=== PATIENT | male | born 1965 | race Caucasian/White ===

== ENCOUNTER → 2017-06-29 | Outpatient (CLI) | payer OTHER, BC ==
--- NOTE | 2017-06-29 22:33 | MR ---
EXAMINATION TYPE: MR knee RT wo con DATE OF EXAM: 06/29/2017 COMPARISON: NONE HISTORY: Rt knee pain TECHNIQUE: Multiplanar, multisequence imaging of the right knee is performed without IV contrast. FINDINGS: MEDIAL MENISCUS: There is increased signal within the posterior horn of the medial meniscus compatibl e some internal derangement or degenerative change. No communication with the articular surface is ev ident. Anterior horn of the medial meniscus is unremarkable. LATERAL MENISCUS: Anterior and posterior horns are intact without tear. CRUCIATE LIGAMENTS: The anterior and posterior cruciate ligaments are intact and unremarkable. COLLATERAL LIGAMENTS: The medial collateral ligament and lateral collateral ligament complex are inta ct and unremarkable. EXTENSOR MECHANISM: Very subtle increased signal may be near the insertion of the patellar tendon on the tibia. Series 201 image 19, series 301 image 20. Correlate with location of the patient's pain. EFFUSION: Moderate joint effusion is present. POPLITEAL CYST: No popliteal/concepcion cyst. TRICOMPARTMENT SPACES: Preserved. CARTILAGE: Mild diffuse thinning of the articular cartilage is present within the medial compartment and to a lesser degree the lateral compartment. Anterior patellar articular cartilage appears intact. There is thinning of the posterior patellar cartilage. BONE MARROW SIGNAL: No focal abnormal marrow signal is appreciated. OTHER: There may be some mild superficial soft tissue edema present. IMPRESSION: 1. Internal derangement or degenerative change posterior horn medial meniscus. 2. Mild osteoarthritic degenerative change greater in the medial compartment 3. Moderate joint effusion
== END ==
LOC: RADMRIMAIN 21:01
PROVIDERS: ATTEND Orthopaedic Surgery
DX: M23.321 Other meniscus derangements, posterior horn of medial meniscus, right knee (principal); M17.11 Unilateral primary osteoarthritis, right knee

== ENCOUNTER → 2017-07-15 | Outpatient (CLI) | payer OTHER, BC ==
--- NOTE | 2017-07-15 11:24 | MR ---
EXAMINATION TYPE: MR shoulder RT wo con DATE OF EXAM: 07/15/2017 7:41 AM COMPARISON: NONE HISTORY: pain in rt shoulder TECHNIQUE: Multiplanar multispin echo imaging of the right shoulder was performed. FINDINGS: Rotator cuff : There is thickening and heterogeneity of the supraspinatus tendon with intrasubstance microtears noted. No evidence for full-thickness tear at this time. There is increased signal noted w ithin the subscapularis tendon as well as adjacent fluid. I suspect partial tear of this structure. Bursa: No bursal effusion or thickening is seen. Musculature: There is no muscular tear, contusion, or atrophy. Acromioclavicular joint : Subacromial spur resulting in impingement. AC joint arthropathy. Osseous structures : There are no fractures or regions of abnormal bone marrow signal intensity. Long biceps tendon : The biceps tendon is normally situated within the bicipital groove. Fluid is see n within the biceps tendon sheath which may reflect tenosynovitis. Thinning and heterogeneity of the intra-articular biceps tendon partial tear is not excluded. Glenohumeral Joint fluid : There is no glenohumeral joint effusion. Cartilage and Bone : No focal hyaline cartilage defects are noted. No Hill-Sachs, reverse Hill-Sachs, or bony Bankart lesions are seen. Labrum : There are no SLAP or soft tissue Bankart lesions. No paralabral cysts are seen. OTHER FINDINGS : none IMPRESSION: 1. There is increased signal noted within the subscapularis tendon as well as adjacent fluid. I suspe ct partial tear of this structure. 2. Tendinosis of the supraspinatus tendon with the microtear is noted. No evidence for full-thickness tear. 3. Subacromial spurring resulting in impingement. 4. Intra-articular thinning and tendinosis of the biceps tendon with partial tear difficult to exclud e.
== END | disposition home or self-care (01) ==
LOC: RADMRIMAIN 07:00
PROVIDERS: ATTEND Orthopaedic Surgery
DX: M75.101 Unspecified rotator cuff tear or rupture of right shoulder, not specified as traumatic (principal); M67.813 Other specified disorders of tendon, right shoulder

== ENCOUNTER → 2018-08-26 | Outpatient (CLI) | payer OTHER, BC ==
--- NOTE | 2018-08-27 00:02 | MR ---
EXAMINATION TYPE: MR knee RT wo con DATE OF EXAM: 08/26/2018 COMPARISON: 06/29/2017 HISTORY: Pain in right knee TECHNIQUE: Multiplanar, multisequence imaging of the right knee is performed without IV contrast. FINDINGS: There is moderate size knee joint effusion. The anterior and posterior cruciate ligaments appear inta ct. There is horizontal increased signal in the posterior horn medial meniscus extending to the super ior surface. There is also increased signal within the substance anterior horn medial meniscus. There is vertical defect through the posterior horn lateral meniscus extending to the superior and in ferior surface. There is some patchy increased signal in the T2 images involving the medial tibial co ndyle. This measures 3 x 1.5 cm. There is no evidence of a fracture. The collateral ligaments appear intact. There is a large cartilage defect of the articular cartilage of the medial femoral and tibial condyles. IMPRESSION: Moderate size knee joint effusion. Horizontal tear posterior horn of the medial meniscus that has pro gressed compared to old exam. There is vertical tear posterior horn of the lateral meniscus unchanged . There is new large cartilaginous defect of the articular cartilage of the medial femoral condyle comp ared to old exam. There is also defect of the articular cartilage medial tibial condyle. There is a n ew large bone bruise medial tibial condyle.
== END ==
LOC: RADMRIMAIN 05:55
PROVIDERS: ATTEND Orthopaedic Surgery
DX: S83.241A Other tear of medial meniscus, current injury, right knee, initial encounter (principal); S83.262A Peripheral tear of lateral meniscus, current injury, left knee, initial encounter; M94.9 Disorder of cartilage, unspecified

== ENCOUNTER → 2019-08-03 | Outpatient (CLI) | payer OTHER, BC ==
--- NOTE | 2019-08-03 12:34 | MR ---
EXAMINATION TYPE: MR shoulder LT wo con DATE OF EXAM: 08/03/2019 COMPARISON: NONE HISTORY: Left shoulder pain and unspecified injury of rotator cuff tendon TECHNIQUE: Multiplanar, multisequence imaging of the left shoulder is performed without contrast. FINDINGS: Rotator Cuff: Some increased signal distal supraspinatus and infraspinatus tendons without tear. Subs capularis tendon shows marked thickening and increased signal proximally with marked surrounding flui d . Distal fibers are less well seen. Rotator cuff muscle bulk is fairly well preserved. Acromioclavicular Joint: Moderate spurring and narrowing. Moderate capsular hypertrophy. Underlying F at plane maintained. Distal acromion morphology unremarkable. Glenohumeral Joint: Small joint effusion. Moderate narrowing. Mild spurring. Labrum: The labrum appears grossly intact given limitation of non-arthrogram study. Biceps Tendon: The long head of biceps is in normal location within bicipital groove. Bone marrow signal: No focal abnormal marrow signal is appreciated. Other: No additional significant abnormality is appreciated. IMPRESSION: 1. Marked tendinopathy of the subscapularis tendon. Significant surrounding edematous changes are pre sent. Cannot rule out distal tear but biceps tendon is not dislocated. Correlate clinically. 2. More mild tendinosis of the distal supraspinatus and infraspinatus tendons. No rotator cuff tear i s evident. 3. Moderate glenohumeral and AC joint arthropathy.
== END | disposition home or self-care (01) ==
LOC: RADMRIMAIN 05:59
PROVIDERS: ATTEND Physician Assistant
DX: M12.812 Other specific arthropathies, not elsewhere classified, left shoulder (principal)

== ENCOUNTER → 2020-07-30 | Outpatient (CLI) | payer OTHER, BC ==
--- NOTE | 2020-07-30 15:04 | MR ---
EXAMINATION TYPE: MR lumbar spine wo con DATE OF EXAM: 07/30/2020 COMPARISON: None HISTORY: L hip pain CONTRAST: 0 mL intravenous Gadavist. TECHNIQUE: Multiplanar, multisequence images of the lumbar spine were acquired. FINDINGS: L5-S1: No significant disc bulge or disc herniation. No spinal canal stenosis. No foraminal stenosi s. Mild facet hypertrophy is present.. L4-L5: There is a grade 1 spondylolisthesis of L4 anteriorly on L5. Broad-based disc bulge is present diffusely. Mild facet hypertrophy is present. There is mild right foraminal narrowing from disc bulg ing. No spinal canal stenosis. No foraminal stenosis. . L3-L4: There is broad-based disc bulge. This is greater in the right paracentral region. No spinal ca nal stenosis is present. Neural foramen are patent. Mild facet hypertrophy is present. L2-L3: No significant disc bulge or disc herniation. No spinal canal stenosis. No foraminal stenosi s. Minimal facet hypertrophy is present. L1-L2: No significant disc bulge or disc herniation. No spinal canal stenosis. No foraminal stenosi s. . T12-L1: No significant disc bulge or disc herniation. No spinal canal stenosis. No foraminal stenos is. . IMPRESSION: 1. Grade 1 spondylolisthesis of L4 anteriorly on L5. 2. Disc bulging at 34, L4-5. L4-5 this is causing mild anterior thecal sac flattening. At L3-4 this i s slightly greater in the right paracentral region but without stenosis.
== END | disposition home or self-care (01) ==
LOC: RADMRIMAIN 06:12
PROVIDERS: ATTEND Orthopaedic Surgery
DX: M51.26 Other intervertebral disc displacement, lumbar region (principal); M43.16 Spondylolisthesis, lumbar region; M16.12 Unilateral primary osteoarthritis, left hip; M70.62 Trochanteric bursitis, left hip
CPT/HCPCS: 72148

== ENCOUNTER → 2020-09-01 | Outpatient (CLI) | payer OTHER, BC ==
--- NOTE | 2020-09-01 16:50 | MR ---
EXAMINATION TYPE: MR hip LT wo con DATE OF EXAM: 09/01/2020 COMPARISON: None HISTORY: Lt hip pain x 3 mos, limited ROM Multiplanar multiecho imaging of the pelvis and both hips was performed without contrast. FINDINGS: On the T1 images there is abnormal decreased signal in the superior aspect of the left femoral head. This area shows slight increased signal on the STIR images. There is no free fluid in the pelvis. Blake dder distends smoothly. There is no sign of a pelvic mass. The sacroiliac joints appear intact. Proxi mal right femur has normal signal pattern. IMPRESSION: 2.5 cm area of abnormal signal in the superior left femoral head consistent with avascular necrosis. No significant collapse of the articular surface. There is slight narrowing left hip joint space.
== END | disposition home or self-care (01) ==
LOC: RADMRIMAIN 07:17
PROVIDERS: ATTEND Orthopaedic Surgery Orthopaedic Surgery of the Spine
DX: M54.5 Low back pain (principal)

== ENCOUNTER → 2020-09-24 | Outpatient (CLI) | payer OTHER, BC ==
[2020-09-24 11:47] LABS: HCT 45.9 % (39.0-53.0); HGB 15.8 gm/dL (13.0-17.5); MCH 32.9 pg (25.0-35.0); MCHC 34.4 g/dL (31.0-37.0); MCV 95.4 fL (80.0-100.0); Mean Platelet Volume 7.2; Platelet Count 249 k/uL (150-450); RBC 4.81 m/uL (4.30-5.90); RDW 12.4 % (11.5-15.5); WBC 8.6 k/uL (3.8-10.6)
[2020-09-24 11:52] LABS: Appearance,Urine Clear (Clear); Bilirubin,Urine Negative (Negative); Blood,Urine Negative (Negative); Color,Urine Yellow; Glucose,Urine (UA) Negative (Negative); Ketones,Urine Negative (Negative); Leukocyte Esterase,Urine Negative (Negative); Nitrite,Urine Negative (Negative); Protein,Urine Trace (Negative); Specific Gravity,Urine 1.031 (1.001-1.035); Urobilinogen,Urine <2.0 mg/dL (<2.0)
[2020-09-24 12:02] LABS: INR 0.9 (<1.2); Partial Thromboplastin Time 24.6 sec (22.0-30.0); Prothrombin Time 9.8 sec (9.0-12.0)
[2020-09-24 12:03] LABS: ALT 19 U/L (4-49); AST 23 U/L (17-59); African American GFR (CKD) >90 (>60 ml/min/1.73 sqM); Albumin 4.6 g/dL (3.5-5.0); Alkaline Phosphatase 74 U/L (38-126); Anion Gap 8 mmol/L; Blood Urea Nitrogen 18 mg/dL (9-20); Calcium 9.4 mg/dL (8.4-10.2); Carbon Dioxide 27 mmol/L (22-30); Chloride 106 mmol/L (98-107); Glucose 94 mg/dL (74-99); Non-African American GFR(CKD) >90 (>60 ml/min/1.73 sqM); Potassium 4.5 mmol/L (3.5-5.1); Sodium 141 mmol/L (137-145); Total Protein 7.6 g/dL (6.3-8.2)
== END | disposition home or self-care (01) ==
LOC: LABPAT 09:35
PROVIDERS: ATTEND Orthopaedic Surgery
DX: Z01.812 Encounter for preprocedural laboratory examination (principal); Z01.818 Encounter for other preprocedural examination
CPT/HCPCS: 36415; 80053; 81003; 85027; 85610; 85730; 87070

== ENCOUNTER 2020-10-02 09:52 | Observation (INO) | payer OTHER, BC ==
[2020-10-01 09:00] VITALS: BMI 31.8
[~2020-10-02 09:52] MED LIST: ACETAMINOPHEN TAB 500 MG TAB PO ONE; DEXAMETHASONE SOD PHOSPHATE 4 MG/ML 1 ML VIAL IV ONE; GABAPENTIN 300 MG CAP PO ONE; LIDOCAINE 1% (10MG/ML) FOR IV START INTRADERMA PRN; MELOXICAM 7.5 MG TAB PO ONE; MIDAZOLAM 2 MG/2 ML VIAL IV PRN; ONDANSETRON 4 MG/2 ML VIAL IVP ONE; ROPIVACAINE 246.25 MG, EPINEPHrine 0.5 MG, KETOROLAC 30 MG, cloNIDine HCL/PF 80 MCG, WA... MISCELLANE ONE; TRANEXAMIC ACID 1,000 MG in SODIUM CHLORIDE 0.9% 100 ML IVPB ONE
[2020-10-02] MEDS: LACTATED RINGERS 1,000 ML IV SCH (10:59)
[2020-10-02] MEDS ORDERED: PROPOFOL 10 MG/ML 20 ML VIAL IV ONE (11:38)
[2020-10-02] MEDS ORDERED: SODIUM CHLORIDE 0.9% IRRIG 1,000 ML BTL IRRIGATION ONE (11:38)
[2020-10-02] MEDS ORDERED: fentaNYL (PF) 50 MCG/ML 2 ML AMP ONE (11:38)
[2020-10-02] MEDS ORDERED: SODIUM CHLORIDE 0.9% 100 ML BAG ONE (11:38)
[2020-10-02] MEDS ORDERED: MIDAZOLAM 2 MG/2 ML VIAL ONE (11:38)
[2020-10-02] MEDS ORDERED: HEPARIN SODIUM,PORCINE 10,000 UNIT/ML 1 ML VIAL ONE (11:38)
[2020-10-02] MEDS ORDERED: GLYCOPYRROLATE 0.2 MG/ML 2 ML VIAL ONE (11:38)
[2020-10-02] MEDS ORDERED: PHENYLEPHRINE-0.9% NACL SYG 1 MG/10 ML SYRINGE ONE (11:38)
[2020-10-02] MEDS ORDERED: diphenhydrAMINE 50 MG/ML 1 ML VIAL ONE (11:38)
[2020-10-02] MEDS ORDERED: TRANEXAMIC ACID 1,000 MG/10 ML VIAL ONE (11:38)
[2020-10-02] MEDS ORDERED: ceFAZolin 3,000 MG in SODIUM CHLORIDE 0.9% IRRIGATIO 3,000 ML IRRIGATION ONE (11:43)
[2020-10-02] MEDS ORDERED: LACTATED RINGERS 1,000 ML IV ONE (12:29)
--- NOTE | 2020-10-02 12:59 | P.OP ---
Date of Procedure: 10/02/20 Preoperative Diagnosis: Severe osteoarthritis left hip Postoperative Diagnosis: Severe osteoarthritis left hip Procedure(s) Performed: Left total hip arthroplasty with a direct anterior approach Implants: [employer] Polarstem standard size 4 [employer] R3, 3 hole hemispherical acetabular shell, 54 mm [employer] Reflection 6.5 mm cancellus screw, 20 mm 2 [employer] R3, XLPE 20 acetabular liner [employer] Oxinium femoral head 36 m, +4 All components were press-fit. The articulation is Oxinium on polyethylene. Anesthesia: spinal Surgeon: Calvin Goyal Quality Improvement Specialist #1: Danette Irby Estimated Blood Loss (ml): 300 (180 mL returned with Cell Saver) Pathology: other (Femoral head) Condition: stable Disposition: PACU Indications for Procedure: After failure of conservative treatment we discussed the surgical and nonsurgical treatment options at length. Patient wishes to proceed with a total hip arthroplasty with a direct anterior approach. Complications specific to this procedure were discussed at length, including but not limited to infection, leg length discrepancy, dislocation, nerve injury, and fracture. Covid-19 was also discussed at length with the patient, and they are aware of the current policies and procedures. The patient was given the option of delaying surgery, but they elect to proceed knowing these risks. Patient is aware of all these complications and informed consent was obtained Operative Findings: The operative findings are consistent with severe osteoarthritis of the left hip Description of Procedure: Patient was seen and evaluated in the preoperative area and the consent was reviewed. The operative site was marked with a skin marker. The patient was then brought to the operating room and given preoperative antibiotics intravenously. 1 g of Tranexamic acid was also given intravenously. A spinal anesthetic was administered by the anesthesia department. The patient was then placed on the [place] table with the bony prominences well-padded. The hip area was then prepped with a ChloraPrep solution and draped in the usual sterile fashion. A universal timeout was then performed, which confirmed the patient's name, surgical site, ALLERGIES, and procedure being performed on the consent. Next the incision site was located at 1 cm distal and 1 cm lateral to the anterior superior iliac spine. The skin and subcutaneous tissues were sharply incised. Incision was carefully dissected down to the fascia overlying the tensor fascia samantha muscle. This fascia was then incised in line with the incision. Care was taken to stay laterally in order to avoid injuring the lateral femoral cutaneous nerve. Next, using blunt finger dissection, the tensor fascia samantha muscle was dissected off its investing fascia. The muscle was then carefully retracted laterally with a cobra retractor over the lateral neck of the femur. Next, the circumflex vessels were identified and cauterized using the AquaMantis device. The anterior hip capsule was then exposed. The capsule was then opened and an inverted T fashion. Cobra retractors were then placed intracapsularly. The retractors were maintained intracapsular throughout the procedure. The proximal femur was then visualized. A small amount of traction was placed on the leg. The femoral neck was then osteotomized appropriate level above the lesser trochanter. A small wedge of bone was then removed from the remaining femoral head. Next, using a corkscrew the femoral head was removed from the acetabulum. On gross visual inspection, the femoral head had complete loss of articular cartilage and multiple periarticular osteophytes. The femoral head was then measured. Attention was then turned to the acetabulum. The acetabulum was exposed and any remaining labrum was excised. Sequential reaming of the acetabulum was performed using fluoroscopic guidance until there was a good bed of bleeding cancellus bone. When the appropriate size was reached, a trial was then placed. The position and fit of the trial was checked with fluoroscopy. The trial was then removed. Then, using fluoroscopic guidance, the final implant was impacted at 20 of anteversion and 40 of abduction, and fully seated in the acetabulum. 2 screws were then placed in the acetabulum. Again fluoroscopy was used to check position of the screws. Next, the liner was then impacted, with a 20 elevated liner located in the anterior superior quadrant. Component locking was confirmed. Attention was then directed to the femur. With the aid of the [place] table, the femur was externally rotated to approximately 130, extended, and adducted under the opposite leg. A side hook was then placed under the proximal femur, and the side hook elevator was used to elevate the proximal femur while releasing the capsule. Retractors were then placed. A capsular release was performed, as well as a release of the conjoined tendon, which afforded excellent visualization of the proximal femur. Next, a box osteotome was used to lateralize the proximal femur. A livestock ranch hand was then used to locate the femoral canal. Sequential broaching was then performed with appropriate size which afforded excellent fixation in the proximal femur. A trial was then placed with appropriate head and neck, and the hip was gently reduced with the aid of the [place] table. Fluoroscopy was then used to check position of the components, as well as to ensure equal leg lengths. The hip was then gently dislocated and the trials were then removed. Final implants were then impacted and the hip was again reduced. Final fluoroscopic x-rays confirmed that the components were in anatomic position, as well as equal leg lengths. The hip was also taken through range of motion, and found to be stable. The hip was then copiously irrigated with antibiotic solution with pulsatile lavage. The hip was then irrigated with Irrisept solution. The soft tissues were then injected with a ropivacaine solution, which consisted of 246.25 mg of ropivacaine, 0.5 mg of epinephrine, 30 mg of Toradol, 80 g of clonidine, and 48.45 mL of sterile water, for a total of 100 mL of fluid injected. A second dose of 1 g of Tranexamic acid was also given intravenously. Any blood collected by Cell Saver was then returned to the patient at this time. The fascia was then closed with 2-0 strata fix suture. The subcutaneous tissue was closed with 3-0 Vicryl. The subcuticular tissue was closed with 3-0 strata fix suture. The skin was then closed with Exofin skin glue. After the glue and dried, and Optifoam silver impregnated dressing was applied. The patient was then transferred to the recovery room in stable condition. The assistant to the ceo FELICITA Aviles was required due to the complexity of surgery, and the need for skilled investigative assistant for positioning, draping, exposure, retraction, and closure of the wound.
[2020-10-02] MEDS ORDERED: HYDROmorphone 1 MG/ML 1 ML SYRINGE IVP PRN (13:23)
[2020-10-02] MEDS ORDERED: HYDROmorphone 0.2 MG/1 ML SYRINGE IVP PRN (13:23)
[2020-10-02] MEDS ORDERED: HYDROcodone/APAP 5-325MG 1 EACH TAB PO PRN (13:23)
[2020-10-02] MEDS ORDERED: ONDANSETRON 4 MG/2 ML VIAL IVP PRN (13:23)
[2020-10-02] MEDS ORDERED: diazePAM 5 MG TAB PO PRN (13:23)
[2020-10-02] MEDS ORDERED: MAGNESIUM HYDROXIDE 2,400 MG/10 ML CUP PO PRN (13:23)
[2020-10-02] MEDS ORDERED: hydrOXYzine pamoate 25 MG CAP PO PRN (13:23)
[2020-10-02] MEDS ORDERED: NALOXONE 0.4 MG/ML 1 ML VIAL IV PRN (13:23)
--- NOTE | 2020-10-02 13:24 | XR ---
Fluoroscopy History: Left anterior hip 1 min 09 sec fl time used left anterior hip
--- NOTE | 2020-10-02 13:51 | XR ---
EXAMINATION TYPE: XR Hip Limited LT DATE OF EXAM: 10/02/2020 CLINICAL HISTORY: Postoperative evaluation TECHNIQUE: Single portable view of the left hip was submitted. FINDINGS: Noted are changes of total hip arthroplasty with femoral and acetabular components appearin g well seated. Alignment is anatomic. Postsurgical soft tissue changes are evident. IMPRESSION: Satisfactory postoperative alignment
[2020-10-02] MEDS: HYDROmorphone 0.5 MG/0.5 ML SYRINGE IVP PRN ×5 (15:14→20:03)
[2020-10-02] MEDS: HYDROcodone/APAP 5-325MG 1 EACH TAB PO PRN ×2 (17:40→23:14)
[2020-10-02] MEDS: SODIUM CHLORIDE 0.9% 1,000 ML IV SCH (20:03)
[2020-10-02] MEDS: ASPIRIN 325 MG TAB PO SCH (20:03)
[2020-10-02] MEDS ORDERED: SENNOSIDES-DOCUSATE SODIUM 1 EACH TAB PO SCH (21:00)
[2020-10-03] MEDS: HYDROmorphone 0.5 MG/0.5 ML SYRINGE IVP PRN (04:55)
[2020-10-03] MEDS: SODIUM CHLORIDE 0.9% 1,000 ML IV SCH (05:09)
[2020-10-03] MEDS: LACTATED RINGERS 1,000 ML IV SCH (05:09)
[2020-10-03 07:30] LABS: Basophils % (A) 0 %; Eosinophils % (A) 0 %; HCT 37.5 % (39.0-53.0); Lymphocytes # (A) 1.8 k/uL (1.0-4.8); Lymphocytes % (A) 14 %; MCH 31.8 pg (25.0-35.0); MCHC 33.7 g/dL (31.0-37.0); MCV 94.5 fL (80.0-100.0); Mean Platelet Volume 7.5; Monocytes # (A) 1.4 k/uL (0-1.0); Monocytes % (A) 11 %; Neutrophils # (A) 9.1 k/uL (1.3-7.7); Neutrophils % (A) 71 %; Platelet Count 237 k/uL (150-450); RBC 3.97 m/uL (4.30-5.90); RDW 12.6 % (11.5-15.5); WBC 12.8 k/uL (3.8-10.6)
[2020-10-03 07:31] LABS: HGB 12.6 gm/dL (13.0-17.5)
[2020-10-03] MEDS: ASPIRIN 325 MG TAB PO SCH (08:16)
[2020-10-03] MEDS: HYDROcodone/APAP 5-325MG 1 EACH TAB PO PRN (08:16)
[2020-10-03] MEDS ORDERED: MELOXICAM 7.5 MG TAB PO SCH (09:00)
[2020-10-03 09:44] VITALS: BP 135/74; PULSE 88; RESP 16; TEMP 98.2
--- NOTE | 2020-10-03 10:12 | P.DS ---
Providers Date of admission: 10/02/20 23:51 Expected date of discharge: 10/03/20 Attending physician: Calvin Goyal Consults: 10/02/20 13:23 Consult Physician Routine Consulting Provider: Rachele Gtz Consult Reason/Comments: medical management Do you want consulting provider notified?: Yes Primary care physician: Stated None - Discharge Diagnosis(es) (1) Osteoarthritis of left hip Current Visit: Yes Status: Acute (2) S/P total hip arthroplasty Current Visit: Yes Status: Acute Hospital Course: This is a 55-year-old male with known history of degenerative arthritis of the left hip. The patient presented for evaluation as an outpatient. After discussion and consideration patient elects to proceed with total hip arthroplasty. The patient is seen preoperatively by Dr. Goyal and medically cleared for surgery by their primary care physician. Patient is admitted to [facility] on 10/02/2020 for total hip arthroplasty. The procedure is performed without complication or sequelae. The patient is doing well postoperatively. Labs and vital signs are stable on day of discharge. On day of discharge patient's hip incision is healing well. There is minimal erythema. There is no drainage noted at this time. There is minimal soft tissue swelling to the hip and thigh. Patient has full foot and ankle motion without difficulty or pain. Calf is soft and nontender to palpation. Neurovascular status to the left lower extremity is intact. Patient is discharged home in good condition. Opioid start talking form is reviewed and signed. Please see med rec for accurate list of home medications. Plan - Discharge Summary Discharge Rx Participant: Yes New Discharge Prescriptions: New Aspirin 325 mg PO BID #60 tab HYDROcodone/APAP 5-325MG [[place] 5-325] 1 - 2 tab PO Q6HR PRN #48 tab PRN Reason: Pain Sennosides [Senokot] 2 tab PO DAILY PRN #60 tablet PRN Reason: Constipation No Action Acetaminophen-Codeine 300-30mg [Tylenol w/codeine #3] 1 - 2 tab PO Q4-6H PRN PRN Reason: Pain Discharge Medication List Acetaminophen-Codeine 300-30mg [Tylenol w/codeine #3] 1 - 2 tab PO Q4-6H PRN 10/01/20 [History] Aspirin 325 mg PO BID #60 tab 10/03/20 [Rx] HYDROcodone/APAP 5-325MG [[place] 5-325] 1 - 2 tab PO Q6HR PRN #48 tab 10/03/20 [Rx] Sennosides [Senokot] 2 tab PO DAILY PRN #60 tablet 10/03/20 [Rx] Follow up Appointment(s)/Referral(s): Danette Irby PAC [PHYSICIAN PERSONNEL ADVISER] - 2 Weeks Activity/Diet/Wound Care/Special Instructions: Weightbearing as tolerated with walker. Leave dressing intact. Dressing may be removed by home care nurse or by patient in 10 days. May shower with dressing on. Please take aspirin 325mg twice daily for 30 days to prevent blood clots. Recommend use of compression stockings daily until follow up to help prevent swelling and blood clots. May remove at night before sleeping. Please follow-up with [facility] in 2 weeks and call with any questions or concerns, . Discharge Disposition: HOME SELF-CARE
--- NOTE | 2020-10-03 11:22 | P.CONS ---
History of Present Illness - Reason for Consult Leukocytosis - History of Present Illness Patient is a pleasant 55-year-old male with no known significant medical problems came in for elective left fourth of S2. Patient does have some leukocytosis post surgery denied any fever chills, nausea, vomiting, dysuria, cough. Patient did move his bowels last night clinically doing well. Pain is well-controlled is being discharged today. Review of Systems REVIEW OF SYSTEMS: CONSTITUTIONAL: No fever, no malaise, no fatigue. HEENT: No recent visual problems or hearing problems. Denied any sore throat. CARDIOVASCULAR: No chest pain, orthopnea, PND, no palpitations, no syncope. PULMONARY: No shortness of breath, no cough, no hemoptysis. GASTROINTESTINAL: No diarrhea, no nausea, no vomiting, no abdominal pain. NEUROLOGICAL: No headaches, no weakness, no numbness. HEMATOLOGICAL: Denies any bleeding or petechiae. GENITOURINARY: Denies any burning micturition, frequency, or urgency. MUSCULOSKELETAL/RHEUMATOLOGICAL: Denies any joint pain, swelling, or any muscle pain. ENDOCRINE: Denies any polyuria or polydipsia. The rest of the 14-point review of systems is negative. Past Medical History Past Medical History: Osteoarthritis (OA) History of Any Multi-Drug Resistant Organisms: MRSA Year Discovered:: 2011 MDRO Source:: right knee Past Surgical History: Orthopedic Surgery Additional Past Surgical History / Comment(s): vasectomy, arthroscopic right knee Past Anesthesia/Blood Transfusion Reactions: No Reported Reaction Past Psychological History: No Psychological Hx Reported Smoking Status: Never smoker Past Alcohol Use History: Occasional Past Drug Use History: None Reported - Past Family History Mother Sister(s) Family Medical History: Cancer Mother Additional Family Medical History / Comment(s): lung issue passed 2011 Father Additional Family Medical History / Comment(s): alive age 90 Medications and Allergies Home Medications Medication Instructions Recorded Confirmed Type Acetaminophen-Codeine 300-30mg 1 - 2 tab PO Q4-6H PRN 10/01/20 10/01/20 History [Tylenol w/codeine #3] Aspirin 325 mg PO BID #60 tab 10/03/20 Rx HYDROcodone/APAP 5-325MG [[place] 1 - 2 tab PO Q6HR PRN #48 tab 10/03/20 Rx 5-325] Sennosides [Senokot] 2 tab PO DAILY PRN #60 tablet 10/03/20 Rx Allergies Allergy/AdvReac Type Severity Reaction Status Date / Time No Known Allergies Allergy Verified 10/02/20 10:09 Physical Exam Vitals: Vital Signs Temp Pulse Resp BP BP Pulse Ox 10/03/20 07:00 98.2 F 88 16 135/74 95 10/03/20 01:30 98.1 F 74 20 106/62 96 10/02/20 19:40 97.8 F 88 16 105/67 95 10/02/20 16:15 80 16 106/53 96 10/02/20 15:45 74 16 131/78 98 10/02/20 15:15 75 16 106/61 93 L 10/02/20 14:45 68 16 107/67 99 10/02/20 14:30 67 16 104/58 97 10/02/20 14:15 67 16 105/64 97 10/02/20 14:00 71 16 105/66 100 10/02/20 13:45 76 16 105/59 100 10/02/20 13:30 89 16 100/57 99 10/02/20 13:23 97.3 F L 93 16 105/64 95 Intake and Output 10/02/20 10/03/20 10/03/20 22:59 06:59 14:59 Intake Total 1100 100 600 Balance 1100 100 600 Intake: IV 1000 600 Sodium Chloride 0.9% 1, 600 000 ml @ 70 mls/hr IV . [id number] [facility] Rx#:[id number] Oral 100 100 Other: # Voids 1 Weight 113.9 kg PHYSICAL EXAMINATION: GENERAL: The patient is alert and oriented x3, not in any acute distress. Well developed, well nourished. HEENT: Pupils are round and equally reacting to light. EOMI. No scleral icterus. No conjunctival pallor. Normocephalic, atraumatic. No pharyngeal erythema. No thyromegaly. CARDIOVASCULAR: S1 and S2 present. No murmurs, rubs, or gallops. PULMONARY: Chest is clear to auscultation, no wheezing or crackles. ABDOMEN: Soft, nontender, nondistended, normoactive bowel sounds. No palpable organomegaly. MUSCULOSKELETAL: No joint swelling or deformity. EXTREMITIES: No cyanosis, clubbing, or pedal edema. NEUROLOGICAL: Gross neurological examination did not reveal any focal deficits. SKIN: No rashes. Results CBC & Chem 7: 10/03/20 06:59 Labs: Abnormal Lab Results - Last 24 Hours (Table) 10/03/20 Range/Units 06:59 WBC 12.8 H (3.8-10.6) k/uL RBC 3.97 L (4.30-5.90) m/uL Hgb 12.6 L D (13.0-17.5) gm/dL Hct 37.5 L (39.0-53.0) % Neutrophils # 9.1 H (1.3-7.7) k/uL Monocytes # 1.4 H (0-1.0) k/uL Assessment and Plan Plan: -leukocytosis: No evidence of infection at this time, no further intervention is necessary patient is medically stable to be discharged -Right hip arthroplasty: Patient is being discharged on aspirin 325 mg for DVT prophylaxis. Patient is medically stable to discharge.
== END 2020-10-03 11:40 | disposition home or self-care (01) ==
LOC: OR 09:52 → 4SSUR 18:21 → OR 23:51 → 4SSUR 23:51 → OR 10-03 00:28 → 4SSUR 10-03 00:28
PROVIDERS: ADMIT Orthopaedic Surgery; ATTEND Orthopaedic Surgery
DX: M16.12 Unilateral primary osteoarthritis, left hip (principal); D72.829 Elevated white blood cell count, unspecified; M54.5 Low back pain; Z86.14 Personal history of Methicillin resistant Staphylococcus aureus infection; Z79.82 Long term (current) use of aspirin; Z79.891 Long term (current) use of opiate analgesic; Z79.899 Other long term (current) drug therapy; Z83.3 Family history of diabetes mellitus; Z83.6 Family history of other diseases of the respiratory system; Z82.49 Family history of ischemic heart disease and other diseases of the circulatory system; Z80.9 Family history of malignant neoplasm, unspecified
CPT/HCPCS: 97161; 97165; 86891; 85025; 73501; 27130; G0378; P9022; C1776; J2250; J0171; J1200; J1644; J1100; J0690 ×3; J2405; J3010; J1885; J2795; J2370; J2704; J0735; J1170 ×2; 86850; 86900; 86901; 88300

== ENCOUNTER → 2020-11-28 | Outpatient (CLI) | payer OTHER, BC ==
--- NOTE | 2020-11-28 11:03 | MR ---
EXAMINATION TYPE: MR ankle RT wo con DATE OF EXAM: 11/28/2020 COMPARISON: NONE HISTORY: 55-year-old male M25.571 Pain in right ankle TECHNIQUE: Multiplanar, multisequence images of the right ankle were obtained without IV contrast. FINDINGS: There is a small to moderate tibiotalar joint effusion and moderate effusion in the posterior subtala r joint. Subtalar joint is aligned. Mild degenerative cartilage thinning along the anterior half of the tibiot alar joint with minimal marginal spurring. No acute or healing fracture is seen. Plantar heel spur. The origin of the plantar fascia is intact. Small delineation to the Achilles tend on. Mild degenerative change at the fourth TMT joint and navicular cuneiform joint characterized by minim al subchondral cystic change. There is edema tracking along the posterior tibial tendon myotendinous junction with prominent medial sided soft tissue edema. There is thickening of the suprapatellar portion of the tendon and a large interstitial and split tear which extends from the level of the malleolus to the insertion approximat pan 4.5 cm. There may be a partial tear at the mid spicular insertion as well. Some to the subgaleal fluid along the remaining to medial flexor tendons likely reactive. There is abnormal increased signal within the deep posterior deltoid ligament fibers. Some of the mor e anterior fibers appear intact. There is moderate tenosynovial fluid along the peroneal tendons. There seems to be some fraying of th e inframalleolar peroneus brevis just after the peroneal tubercle but without any retracted tear. ATFL appears thin but intact, possible sequela of prior injury. Increased fluid signal along the CT FL. CFL is not well delineated. Anterior extensor tendons appear satisfactory. The syndesmosis appears intact. Lisfranc ligament is visualized and intact. Some edema extends into the region of the sinus Tarsi. Tarsal tunnel is clear. IMPRESSION: 1. Marked posterior tibial tendinosis with a large interstitial and split tear extending from the mal leolar level down. Additional partial thickness tear at its navicular insertion. 2. Associated medial sided soft tissue swelling and tenosynovitis. 3. Mild degenerative cartilage thinning along the anterior tibiotalar joint with moderate posterior s ubtalar joint effusion. Minimal early degenerative change at the fourth TMT joint and navicular cunei form joint. 4. Suspect chronic sprains of the ATFL and CFL and a low-grade sprain of the PTFL. 5. Moderate sprain with partial tear involving the deep posterior deltoid ligament fibers.
== END | disposition home or self-care (01) ==
LOC: RADMRIMAIN 07:08
PROVIDERS: ATTEND Orthopaedic Surgery
DX: S96.811D Strain of other specified muscles and tendons at ankle and foot level, right foot, subsequent encounter (principal); S93.421D Sprain of deltoid ligament of right ankle, subsequent encounter; S93.491D Sprain of other ligament of right ankle, subsequent encounter; M19.071 Primary osteoarthritis, right ankle and foot; M16.11 Unilateral primary osteoarthritis, right hip

== ENCOUNTER 2021-01-04 05:45 | Day surgery (SDC) | payer OTHER, BC ==
[2021-01-01 10:17] VITALS: BMI 31.1
[2021-01-04] MEDS ORDERED: LACTATED RINGERS 1,000 ML IV SCH (05:47)
[2021-01-04] MEDS ORDERED: ONDANSETRON 4 MG/2 ML VIAL IVP ONE (05:47)
[2021-01-04] MEDS ORDERED: DEXAMETHASONE SOD PHOSPHATE 4 MG/ML 1 ML VIAL IV ONE (05:47)
[2021-01-04] MEDS ORDERED: MIDAZOLAM 2 MG/2 ML VIAL IV PRN (05:47)
[2021-01-04] MEDS ORDERED: HYDROmorphone 0.5 MG/0.5 ML SYRINGE IVP PRN (05:47)
[2021-01-04] MEDS ORDERED: LIDOCAINE 1% (10MG/ML) FOR IV START INTRADERMA ONE (06:35)
[2021-01-04] MEDS ORDERED: fentaNYL (PF) 50 MCG/ML 2 ML AMP IVP ONE (06:50)
[2021-01-04] MEDS ORDERED: PROPOFOL 10 MG/ML 20 ML VIAL IV ONE (07:26)
[2021-01-04] MEDS ORDERED: LIDOCAINE 1% INJ 10MG/ML (20 ML MDV) ONE (07:26)
[2021-01-04] MEDS ORDERED: ePHEDrine SULFATE/0.9% NACL/PF 50 MG/5 ML SYRINGE IV ONE (07:26)
[2021-01-04] MEDS ORDERED: KETOROLAC 15 MG/ML 1 ML VIAL ONE (07:26)
[2021-01-04] MEDS ORDERED: HYDROmorphone (PF) 1 MG/ML ONE (07:26)
[2021-01-04] MEDS ORDERED: MIDAZOLAM 2 MG/2 ML VIAL ONE (07:26)
[2021-01-04] MEDS ORDERED: fentaNYL (PF) 50 MCG/ML 2 ML AMP ONE (07:26)
[2021-01-04] MEDS ORDERED: ROPIVACAINE 5 MG/ML 30 ML VIAL ONE (07:26)
[2021-01-04] MEDS ORDERED: ceFAZolin 1,000 MG in SODIUM CHLORIDE 0.9% 1,000 ML IRRIGATION ONE (08:29)
[2021-01-04] MEDS ORDERED: LACTATED RINGERS 1,000 ML IV ONE (08:51)
[2021-01-04] MEDS: HYDROmorphone 1 MG/ML 1 ML SYRINGE IVP ONE ×2 (09:36→09:47)
[2021-01-04 09:43] VITALS: TEMP 97
--- NOTE | 2021-01-04 09:43 | FL ---
Fluoroscopy History: Rt Foot Repair 6sec fluoro time
[2021-01-04 09:45] VITALS: RESP 16
--- NOTE | 2021-01-04 09:47 | XR ---
EXAMINATION TYPE: XR ankle limited RT DATE OF EXAM: 01/04/2021 COMPARISON: NONE HISTORY: Pain TECHNIQUE: Paper images submitted. Total COMPARISON: None. FINDINGS: 3 paper images demonstrate pin fixation of the talus and calcaneus. IMPRESSION: As above
--- NOTE | 2021-01-04 09:50 | P.ANPRN ---
Procedure Note - Anesthesia - Nerve Block Performed Right Popliteal Single Time Out Performed: Yes ([id number]) Date of Procedure: 01/04/21 Procedure Start Time: 06:49 Procedure Stop Time: 06:53 Location of Patient: PreOp Indication: Acute Post-Operative Pain, Requested by Surgeon Specifically requested for management of pain by DrTerence: Erik Jones Sedation Type: Sedate with meaningful contact maintained Preparation: Sterile Prep Position: Supine Catheter: None Needle Types: Pajunk Needle Gauge: 21 Ultrasound used to visualize needle placement: Yes Ultrasound used to observe medication spread: Yes Injectate: 0.5% Ropivacaine (see comment for volume) (20cc) Blood Aspirated: No Pain Paresthesia on Injection Noted: No Resistance on Injection: Normal Image Stored and Saved: Yes Events: Uneventful and Well Tolerated Right Adductor Canal Single Time Out Performed: Yes (648) Date of Procedure: 01/04/21 Procedure Start Time: 06:54 Procedure Stop Time: 07:00 Location of Patient: PreOp Indication: Acute Post-Operative Pain, Requested by Surgeon Specifically requested for management of pain by DrTerence: Erik Jones Sedation Type: Sedate with meaningful contact maintained Preparation: Sterile Prep Position: Supine Catheter: None Needle Types: Pajunk Needle Gauge: 21 Ultrasound used to visualize needle placement: Yes Ultrasound used to observe medication spread: Yes Injectate: 0.5% Ropivacaine (see comment for volume) (20cc) Blood Aspirated: No Pain Paresthesia on Injection Noted: No Resistance on Injection: Normal Image Stored and Saved: Yes Events: Uneventful and Well Tolerated
[2021-01-04] MEDS ORDERED: HYDROcodone/APAP 7.5-325MG 1 EACH TAB ONE (10:27)
[2021-01-04] MEDS ORDERED: HYDROcodone/APAP 7.5-325MG 1 EACH TAB PO ONE (10:33)
[2021-01-04 10:37] VITALS: BP 129/82; PULSE 84
--- NOTE | 2021-01-04 11:56 | OP ---
OPERATIVE REPORT DATE OF SURGERY: January 04, 2021. PREOPERATIVE DIAGNOSES: 1. Ruptured posterior tibial tendon, right foot. 2. Right foot deformity. POSTOPERATIVE DIAGNOSES: 1. Ruptured posterior tibial tendon, right foot. 2. Right foot deformity. PROCEDURE: 1. Flexor tendon transfer, right foot and ankle (deep). 2. Carvajal calcaneal osteotomy, right foot. 3. Gastroc recession, right leg. SURGEON: Erik Jones DPM ANESTHESIA: General with preoperative nerve block. HEMOSTASIS: Right thigh tourniquet at 250 mmHg. ESTIMATED BLOOD LOSS: 20 mL. MATERIALS: One 10 mm x 20 mm Carvajal allograft, one 18 mm Arthrex compression staple and one 5.5 x 15 mm interference screw. INJECTABLES: None. SPECIMENS: Tendon right foot. COMPLICATIONS: None. OPERATIVE COURSE IS FOLLOWS: Prior to the patient being brought to the operating room, Anesthesia administered a popliteal and saphenous nerve block under ultrasound guidance and mild sedation. The patient was brought into the operating room, placed on table in supine position. Timeout was taken to confirm correct patient identifiers, correct site of surgery and correct procedure. When the room was in agreement, the patient was induced and placed under general anesthetic. A well-padded tourniquet was placed on the right thigh and then a bump underneath the right hip to internally rotate the right leg and then the right leg was prepped and draped in usual manner. The leg was exsanguinated and elevated for 2 minutes. The knee was then partially flexed and the tourniquet inflated to 250 mmHg. Attention was first directed to the lateral side of the right foot where a curvilinear incision was made over the anterior process of the calcaneus. It was deepened down to the subcutaneous tissue careful to identify, avoid and retract any neurovascular structures and cauterize any bleeding vessels. Blunt dissection was continued until the peroneal tendon sheath was identified. An incision was made just superior to the tendon sheath through the soft tissue and periosteum and then the peroneal tendons reflected a one tissue irrigation flume layer of the anterior surface of the calcaneal process and retracted plantarly. The extensor digitorum brevis muscle belly was also dissected off the anterior process and retracted dorsally to expose the area of surgery. The calcaneocuboid joint was identified and marked with a pen and then another line was marked between 10 and 12 mm proximal to that in the anterior process. A PenMark was then used to make the area of the bone cut which was straight dorsal to plantar. Saw was used to start the cut and then with the foot positioned visually the saw was oriented straight lateral to medial. The osteotomy was completed with a combination of saw and osteotomes. The osteotomes were used to free and loosen the soft tissue attachments so that the osteotomy could be opened. Pins for the distractor were then inserted on either side of the osteotomy. The distractor was placed over the pins and then opened to open the osteotomy. The trial sizes were used. It was determined that a 10 x 20 mm pre made bone allograft would be of appropriate size, which was then placed in saline for the appropriate amount of time and then inserted and impacted very gently until it seated properly. Visual inspection was that the cortices were in line with the graft in the calcaneus laterally and it did not protrude excessively dorsally. When that was completed, the distractor was removed as were the pins. The pin hole on the distal fragment was in the proper alignment for the placement of the staple. The pin was placed in that hole to leigh the location. The drill guide was placed over that pin and then the second drill hole made in the proximal fragment and when the drill holes were completed, the pin was removed and then the Arthrex compression staple was inserted and released and then impacted until it was flush with the bone. Fluoroscopic imaging showed proper placement of the staple as well as the graft. Visually, the foot had correction of the transverse plane deformity. The frontal plane rotation of the calcaneus has also been corrected to nearly vertical with the tibia and there was an increase in the medial arch height. The wound was irrigated thoroughly with antibiotic saline. The deep closure was done with 2-0 Vicryl, subcutaneous closure done with 4-0 Monocryl, skin closure done with bob. The bump underneath the right hip was removed, externally rotated the right leg and then attention was directed to the posterior calf area where the gastroc muscle belly was identified and then an incision was made on the posterior medial aspect of the calf distal to the gastroc muscle belly. This was deepened down to the subcutaneous tissue careful to identify, avoid and retract any neurovascular structures and cauterize any bleeding vessels. Blunt dissection was continued down to the retinaculum overlying the gastroc aponeurosis. The retinaculum was opened and then blunt dissection was used to free the fascia over the aponeurosis so that it could be fully visualized. The aponeurosis was mobilized and then a transverse incision made from lateral to medial, full-thickness through the aponeurosis, but being careful to avoid as much trauma as possible to the underlying muscle belly. Once that was completed, the ankle was dorsiflexed and the gap appeared at the lengthening site of approximately 1 and 2 cm and then the area was thoroughly irrigated with antibiotic saline. The subcutaneous closure done with 4-0 Monocryl and skin closure done with bob. Attention then directed to the medial aspect of the foot where an incision was made starting just distal to the posterior tibial tendon attachment and coursed along the tendon pass to an area just posterior to the medial malleolus. It was deepened down to the subcutaneous tissue careful to identify, avoid and retract any neurovascular structures and cauterize any bleeding vessels. Dissection was continued bluntly down to the tendon sheath over the posterior tibial tendon. The tendon sheath was opened near the insertion and then followed up in to the ankle area. It was noted that there was thickening and degeneration of the tendon near the insertion. Also, there was a partial tear with a portion of the fragment that had retracted into the proximal aspect of the incision. This portion of the tendon was sharply dissected and removed. Then the sheath of the flexor digitorum longus was identified just posterior to the posterior tibial tendon. The tendon was brought into the operating field and then a [id number] anastomosis was performed with #2 FiberWire with the posterior tibial tendon. Then the posterior tibial tendon was resected just distal to the suture point and then followed to the insertion and reflected off of the navicular. Because of the pathology of the tendon, it will be sent for evaluation. Next, the sheath of the flexor digitorum longus was followed into the arch and opened. The foot was inverted and the ankle plantar flexed to take tension off of the tendon and then it was resected in the medial arch proximal to the knot of Aubrey and delivered into the surgical field. A whipstitch was placed in the end of the tendon measuring approximately 15 mm in length. Then the guide pin for the navicular tunnel was inserted into the navicular under direct fluoroscopic visualization so it did not enter the talonavicular and navicular cuneiform joints. When it was properly positioned, a 6 mm reamer was applied over the guidewire and drilled to a 15 mm depth. Then the guidewire was removed and the hole evacuated of any bony material. The end of the tendon was captured into the interference screw address change clerk and with the ankle held in neutral the anchor was inserted into the drill hole in the navicular and then the screw advanced to lock the tendon in place. When that was completed, there was proper tensioning of the tendon and made into the medial arch. The wound was then irrigated thoroughly with normal saline with antibiotic. All sutures were cut. The sheath over the newly transferred tendon was closed with 0 Vicryl. Subcutaneous closure done with 4-0 Monocryl. Skin closure done with skin bob. Adaptic was applied over all the incisions and a bulky dry dressing applied to the right ankle and foot. Tourniquet was released and capillary refill returned to all digits of the right foot. Then, a well-padded well-molded plaster posterior mold sugar-tong splint was applied to the right leg. It was held with the foot in neutral as well as the ankle as it dried. Then anesthesia was reversed and the patient tolerated the above procedure and anesthesia well and went to recovery with vital signs stable. MMMARY CARMENL / IJN: [id number] / [id number]
== END 2021-01-04 11:48 | disposition home or self-care (01) ==
LOC: OR 05:45
PROVIDERS: ATTEND Podiatrist
DX: S86.111A Strain of other muscle(s) and tendon(s) of posterior muscle group at lower leg level, right leg, initial encounter (principal); M21.961 Unspecified acquired deformity of right lower leg; W19.XXXA Unspecified fall, initial encounter; Z79.891 Long term (current) use of opiate analgesic; Z98.890 Other specified postprocedural states; Z83.3 Family history of diabetes mellitus; Z82.49 Family history of ischemic heart disease and other diseases of the circulatory system
CPT/HCPCS: 64445; 64447; 76942; 88304